=== PATIENT | female | born 1990 | race African-American/Black ===

== ENCOUNTER 2016-09-15 16:02 | Emergency (ER) | payer OTHER ==
[~2016-09-15] VITALS: Ht 157.5 cm; Wt 89.3 kg
[~2016-09-15 16:02] MED LIST: CHROMAGEN,1 CAPSULE PO; CLEOCIN150 MG PO; CLINDAMYCIN HC300 MG PO; DOXYCYCLINE HY100 MG PO; FLAGYL500 MG PO; INDOCIN25 MG PO; LEXAPRO20 MG PO; NO HOME MEDS; NORCO 5/3251 TABLET PO; PERCOCET 5/31 TABLET PO; XANAX XR3 MG PO
[2016-09-15 19:41] VITALS: BP 134/77
[2016-09-15] MEDS ORDERED: PERCOCET 5/31 TABLET PO (19:42)
[2016-09-15] MEDS ORDERED: CLEOCIN300 MG PO (19:42)
== END 2016-09-15 19:50 | disposition home or self-care (01) ==
LOC: EXP 16:02 → EME 16:02 → EXP 19:50
DX: L02.411 Cutaneous abscess of right axilla (principal); Z91.040 Latex allergy status; Z88.0 Allergy status to penicillin
CPT/HCPCS: 99281; 99284

== ENCOUNTER 2016-09-18 15:04 | Emergency (ER) | payer OTHER ==
[~2016-09-18] VITALS: Ht 157.5 cm; Wt 88.6 kg
[~2016-09-18 15:04] MED LIST changes: +CLEOCIN300 MG PO
[2016-09-18] MEDS ORDERED: PERCOCET 7.51 TABLET PO (17:24)
[2016-09-18 18:10] VITALS: BP 103/91
== END 2016-09-18 18:10 | disposition home or self-care (01) ==
LOC: EME 15:04
PROC: 0H9BXZZ Drainage of Right Upper Arm Skin, External Approach (ICD-10-PCS; principal; 2016-09-18)
DX: L02.411 Cutaneous abscess of right axilla (principal); F17.200 Nicotine dependence, unspecified, uncomplicated
CPT/HCPCS: 99281; 99284; J3010

== ENCOUNTER 2016-09-25 13:56 | Emergency (ER) | payer OTHER ==
[~2016-09-25] VITALS: Ht 157.5 cm; Wt 88.6 kg
[~2016-09-25 13:56] MED LIST changes: +PERCOCET 7.51 TABLET PO
[2016-09-25 18:21] VITALS: BP 124/81
[2016-09-26] MEDS ORDERED: OCUFLOX 0.100 DROP/5 BOTH EYES (23:21)
== END 2016-09-25 18:22 | disposition left against medical advice (07) ==
LOC: EME 13:56
DX: H57.12 Ocular pain, left eye (principal); F17.200 Nicotine dependence, unspecified, uncomplicated
CPT/HCPCS: 80053; 85027; 99281; 99285

== ENCOUNTER 2016-09-26 18:02 | Emergency (ER) | payer OTHER ==
[~2016-09-26] VITALS: Ht 157.5 cm; Wt 89.6 kg
[2016-09-26 20:55] LABS: HEMATOCRIT 36.5 % (36.0-46.0); MCH 27.4 PG (29.0-34.0); MCHC 33.4 G/DL (30.0-36.0); MEAN PLAT.VOLUME 10.7 uM^3 (9.5-12.4); PLATELET COUNT 237 K/uL (156-360); RBC DIS.WIDTH-CV 13.5 % (11.8-14.6); RBC DIS.WIDTH-SD 39.8 % (39-53); RED BLOOD COUNT 4.45 M/uL (3.80-5.20); WHITE BLOOD COUNT 7.4 K/uL (4.1-10.2)
[2016-09-26 21:04] LABS: CHLORIDE 109 mEq/L (99-109); POTASSIUM 4.1 mEq/L (3.7-5.4); SODIUM 139 mEq/L (136-147)
[2016-09-26 21:06] LABS: GLUCOSE 101 mg/dL (70-99)
[2016-09-26 21:07] LABS: ANION GAP 7 MEQ/L (2-14)
[2016-09-26 21:10] LABS: GFR ESTIMATE (CALCULATED) > 59 mL/min/; UREA NITROGEN (BUN) 10 mg/dL (9-23)
[2016-09-26 21:17] LABS: QUANTITATIVE HCG < 4.0 MIU/ML
[2016-09-26] MEDS ORDERED: OCUFLOX 0.100 DROP/5 BOTH EYES (23:21)
[2016-09-27 00:15] VITALS: BP 97/77
== END 2016-09-27 00:34 | disposition home or self-care (01) ==
LOC: EME 18:02
PROVIDERS: Physician Assistant
DX: H10.9 Unspecified conjunctivitis (principal); G89.29 Other chronic pain; F17.200 Nicotine dependence, unspecified, uncomplicated
CPT/HCPCS: 80048; 84702; 85027; 99281; 99284

== ENCOUNTER 2017-09-08 18:38 | Emergency (ER) | payer OTHER ==
[~2017-09-08] VITALS: Ht 154.9 cm; Wt 86.3 kg
[~2017-09-08 18:38] MED LIST changes: +OCUFLOX 0.100 DROP/5 BOTH EYES
[2017-09-08] MEDS ORDERED: FLEXERIL10 MG PO (20:16)
[2017-09-08] MEDS ORDERED: NAPROSYN500 MG PO (20:16)
[2017-09-08 20:26] VITALS: BP 113/84
== END 2017-09-08 20:26 | disposition home or self-care (01) ==
LOC: EME 18:38
DX: M54.41 Lumbago with sciatica, right side (principal); F17.200 Nicotine dependence, unspecified, uncomplicated
CPT/HCPCS: 72100; 73502; 99281; 99284

== ENCOUNTER 2017-10-07 18:05 | Emergency (ER) | payer OTHER ==
[~2017-10-07] VITALS: Ht 154.9 cm; Wt 88.2 kg
[~2017-10-07 18:05] MED LIST changes: +FLEXERIL10 MG PO; +NAPROSYN500 MG PO
[2017-10-07] MEDS ORDERED: KEFLEX500 MG PO (22:10)
[2017-10-07] MEDS ORDERED: BACTRIM,SEPT1 TABLET PO (22:10)
[2017-10-07 22:25] VITALS: BP 138/97
== END 2017-10-07 22:26 | disposition home or self-care (01) ==
LOC: EME 18:05
PROC: 0H9BXZZ Drainage of Right Upper Arm Skin, External Approach (ICD-10-PCS; principal; 2017-10-07)
DX: L02.411 Cutaneous abscess of right axilla (principal); H54.40 Blindness, one eye, unspecified eye; F17.200 Nicotine dependence, unspecified, uncomplicated; Z88.0 Allergy status to penicillin; Z91.040 Latex allergy status
CPT/HCPCS: 99281; 99284; J1885

== ENCOUNTER 2017-11-13 10:57 | Emergency (ER) | payer OTHER ==
[~2017-11-13] VITALS: Ht 154.9 cm; Wt 88.4 kg
[~2017-11-13 10:57] MED LIST changes: +BACTRIM,SEPT1 TABLET PO; +KEFLEX500 MG PO
[2017-11-13 13:15] LABS: HEMATOCRIT 36.9 % (36.0-46.0); HEMOGLOBIN 12.6 G/DL (11.9-15.5); MCH 29.8 PG (29.0-34.0); MCHC 34.1 G/DL (30.0-36.0); MCV 87.2 FL (83-99); PLATELET COUNT 193 K/uL (156-360); RBC DIS.WIDTH-CV 13.1 % (11.8-14.6); RBC DIS.WIDTH-SD 41.8 % (39-53); RED BLOOD COUNT 4.23 M/uL (3.80-5.20); WHITE BLOOD COUNT 5.4 K/uL (4.1-10.2)
[2017-11-13 13:23] LABS: CHLORIDE 107 mEq/L (99-109); POTASSIUM 4.1 mEq/L (3.7-5.4); SODIUM 139 mEq/L (136-147)
[2017-11-13 13:25] LABS: GLUCOSE 98 mg/dL (70-99)
[2017-11-13 13:28] LABS: CREATININE 0.9 mg/dL (0.6-1.3); GFR ESTIMATE (CALCULATED) > 59 mL/min/
[2017-11-13 13:29] LABS: UREA NITROGEN (BUN) 9 mg/dL (9-23)
[2017-11-13] MEDS ORDERED: TESSALON200 MG PO (15:34)
[2017-11-13] MEDS ORDERED: ROBITUSSIN NIG237 ML PO (15:34)
[2017-11-13] MEDS ORDERED: FLONASE16 G1 BOTH NARES (15:34)
[2017-11-13 15:38] VITALS: BP 132/85
== END 2017-11-13 15:38 | disposition left against medical advice (07) ==
LOC: EME 10:57
PROVIDERS: Nurse Practitioner Family
DX: J06.9 Acute upper respiratory infection, unspecified (principal); J30.9 Allergic rhinitis, unspecified; F17.200 Nicotine dependence, unspecified, uncomplicated; Z71.6 Tobacco abuse counseling; Z95.9 Presence of cardiac and vascular implant and graft, unspecified; Z83.518 Family history of other specified eye disorder; Z88.0 Allergy status to penicillin; Z91.040 Latex allergy status
CPT/HCPCS: 71046; 80048; 85027; 99281; 99284

== ENCOUNTER 2017-11-14 21:10 | Emergency (ER) | payer OTHER ==
[~2017-11-14] VITALS: Ht 154.9 cm; Wt 86.3 kg
[~2017-11-14 21:10] MED LIST changes: +FLONASE16 G1 BOTH NARES; +ROBITUSSIN NIG237 ML PO; +TESSALON200 MG PO
[2017-11-14 22:46] LABS: ALBUMIN 3.9 g/dL (3.2-4.8); CHLORIDE 107 mEq/L (99-109); POTASSIUM 3.7 mEq/L (3.7-5.4); SODIUM 139 mEq/L (136-147)
[2017-11-14 22:47] LABS: HEMATOCRIT 33.7 % (36.0-46.0); HEMOGLOBIN 11.7 G/DL (11.9-15.5); MCHC 34.7 G/DL (30.0-36.0); MCV 86.4 FL (83-99); PLATELET COUNT 196 K/uL (156-360); RBC DIS.WIDTH-CV 13.1 % (11.8-14.6); WHITE BLOOD COUNT 7.6 K/uL (4.1-10.2)
[2017-11-14 22:49] LABS: GLUCOSE 82 mg/dL (70-99); TOTAL PROTEIN 7.1 g/dL (6.4-8.3)
[2017-11-14 22:51] LABS: TOTAL BILIRUBIN 0.1 mg/dL (0.0-1.0)
[2017-11-14 22:52] LABS: ALKALINE PHOSPHATASE 76 IU/L (3-129); SERUM ETHYL ALCOHOL < 10 mg/dL
[2017-11-14 22:53] LABS: CREATININE 0.8 mg/dL (0.6-1.3); GFR ESTIMATE (CALCULATED) > 59 mL/min/
[2017-11-14 22:54] LABS: AST (GOT) 18 IU/L (2-34); UREA NITROGEN (BUN) 9 mg/dL (9-23)
[2017-11-14 22:55] LABS: ALT (GPT) 18 IU/L (3-49)
[2017-11-15] MEDS ORDERED: FLEXERIL10 MG PO (00:03)
[2017-11-15 00:22] VITALS: BP 109/82
== END 2017-11-15 00:27 | disposition home or self-care (01) ==
LOC: EME → EDBD 21:10 → EME 21:10
PROVIDERS: Emergency Medicine Emergency Medical Services
DX: S06.0X0A Concussion without loss of consciousness, initial encounter (principal); S16.1XXA Strain of muscle, fascia and tendon at neck level, initial encounter; G43.909 Migraine, unspecified, not intractable, without status migrainosus; Z88.0 Allergy status to penicillin; F17.200 Nicotine dependence, unspecified, uncomplicated; W20.1XXA Struck by object due to collapse of building, initial encounter; W19.XXXA Unspecified fall, initial encounter; Y92.002 Bathroom of unspecified non-institutional (private) residence as the place of occurrence of the external cause
CPT/HCPCS: 70450; 72040; 80053; 85027; 99281; 99285; G0480; J0780; J2405